=== PATIENT | male | born 1960 | race African-American/Black ===

== ENCOUNTER 2016-11-22 00:36 | Emergency (ER) | payer MEDICAID ==
[~2016-11-22] VITALS: Ht 177.8 cm; Wt 117.9 kg
[~2016-11-22 00:36] MED LIST: AMOX-263 PO; METR500T PO
[2016-11-22 01:34] LABS: Basophils # (auto) 0 uL; Basophils % (auto) 0.4 % (0.0-2.0); Eosinophils # (auto) 0.3 uL; Hematocrit 39.6 % (41.0-53.0); Hemoglobin 12.3 g/dL (13.5-17.5); Lymphocytes # (auto) 0.9 uL; Lymphocytes % (auto) 18.6 % (10.0-50.0); Mean Corpuscular Hemoglobin 28.6 pg (28.0-32.0); Mean Corpuscular Hgb Conc. 30.9 g/dL (32.0-36.0); Mean Corpuscular Volume 92.4 fL (80.0-100.0); Mean Platelet Volume 9.7 fL (7.4-10.4); Monocytes # (auto) 0.5 uL; Monocytes % (auto) 10.3 % (0.0-12.0); Neutrophils # (auto) 3.3 uL; Neutrophils % (auto) 65.7 % (37.0-80.0); Platelet Count (auto) 171 10^3/uL (140-450); Red Cell Distribution Width 16.6 % (11.6-16.0)
[2016-11-22 01:40] LABS: Partial Thromboplastin Time 29.9 sec (22.64-33.71); Prothrombin Time 12.2 sec (9.37-12.3)
[2016-11-22 01:41] LABS: INR 1.18 (0.9-1.15)
[2016-11-22 01:45] LABS: Albumin 3.3 g/dL (3.4-5.0); Calcium 7.6 mg/dL (8.5-10.1); Magnesium 2.9 mg/dL (1.6-2.6); Potassium 4.7 mmol/L (3.5-5.1)
[2016-11-22 01:53] LABS: Bilirubin, Total 0.5 mg/dL (0.2-1.0); Total Protein 7.2 g/dL (6.4-8.2)
[2016-11-22 02:06] LABS: B-Type Natriuretic Peptide 375.9 pg/mL (0-100); Temperature: 21.2 C (20.0-25.0)
[2016-11-22] MEDS ORDERED: ONDANSETRON HCL 4 MG/2 ML VIAL IV ONE (03:45)
[2016-11-22] MEDS ORDERED: HYDROmorphone HCL 2 MG/ML VL IV ONE ×2 (03:45→05:00)
[2016-11-22 04:40] VITALS: BP 153/87
[2016-11-22] MEDS ORDERED: cloNIDine HCL 0.1 MG TAB PO ONE (05:00)
== END 2016-11-22 05:15 | disposition short-term general hospital (02) ==
LOC: EDBD 00:36 → ER 00:39
DX: I71.01 Dissection of thoracic aorta (principal); N18.6 End stage renal disease; I12.0 Hypertensive chronic kidney disease with stage 5 chronic kidney disease or end stage renal disease; Z99.2 Dependence on renal dialysis; R07.9 Chest pain, unspecified; R06.02 Shortness of breath; R10.12 Left upper quadrant pain; R10.32 Left lower quadrant pain; R11.10 Vomiting, unspecified; F17.210 Nicotine dependence, cigarettes, uncomplicated; Z86.79 Personal history of other diseases of the circulatory system; I71.4 Abdominal aortic aneurysm, without rupture; Z88.1 Allergy status to other antibiotic agents; Z88.6 Allergy status to analgesic agent
CPT/HCPCS: 36415; 71250; 74176; 80053; 83735; 83880; 84484; 85025; 85610; 85730; 93005; 96374; 96375; 99285; J1170; J2405

== ENCOUNTER 2017-02-07 07:49 | Emergency (ER) | payer MEDICAID ==
[~2017-02-07] VITALS: Ht 180.3 cm; Wt 127.0 kg
[2017-02-07 07:59] VITALS: BP 183/110
== END 2017-02-07 08:23 | disposition home or self-care (01) ==
LOC: ER 07:55
DX: H10.31 Unspecified acute conjunctivitis, right eye (principal); F17.210 Nicotine dependence, cigarettes, uncomplicated; I12.0 Hypertensive chronic kidney disease with stage 5 chronic kidney disease or end stage renal disease; N18.6 End stage renal disease

== ENCOUNTER 2017-08-18 02:29 | Emergency (ER) | payer MEDICAID ==
[~2017-08-18] VITALS: Ht 180.3 cm; Wt 127.0 kg
[2017-08-18] MEDS ORDERED: cloNIDine HCL 0.1 MG TAB ONE ×2 (02:46→05:04)
[2017-08-18] MEDS ORDERED: cloNIDine HCL 0.1 MG TAB PO ONE ×2 (03:00→05:45)
[2017-08-18] MEDS ORDERED: ONDANSETRON HCL 4 MG/2 ML VIAL IV ONE (05:15)
[2017-08-18] MEDS ORDERED: HYDROmorphone HCL 2 MG/ML VL IV ONE (05:15)
[2017-08-18 05:42] LABS: Basophils # (auto) 0.1 uL; Eosinophils # (auto) 0.5 uL; Eosinophils % (auto) 7.5 % (0.0-7.0); Hematocrit 39.4 % (41.0-53.0); Hemoglobin 12.8 g/dL (13.5-17.5); Lymphocytes # (auto) 1.3 uL; Lymphocytes % (auto) 19.8 % (10.0-50.0); Mean Corpuscular Hemoglobin 30.2 pg (28.0-32.0); Mean Corpuscular Hgb Conc. 32.4 g/dL (32.0-36.0); Mean Corpuscular Volume 93.4 fL (80.0-100.0); Mean Platelet Volume 9.5 fL (6.9-10.8); Monocytes # (auto) 0.6 uL; Monocytes % (auto) 9.6 % (0.0-12.0); Neutrophils # (auto) 4.1 uL; Neutrophils % (auto) 62.1 % (37.0-80.0); Nucleated Red Blood Cells % 0.2 %; Platelet Count (auto) 252 10^3/uL (140-450); Red Cell Distribution Width 17.6 % (11.8-14.3); White Blood Cell 6.6 10^3/uL (4.4-10.8)
[2017-08-18 05:56] LABS: INR 1.14 (0.9-1.15); Partial Thromboplastin Time 34.1 sec (22.64-33.71); Prothrombin Time 12.4 sec (9.37-12.3)
[2017-08-18 06:12] LABS: B-Type Natriuretic Peptide 185.58 pg/mL (0-100)
[2017-08-18 06:13] LABS: Temperature: 21.9 C (20.0-25.0)
[2017-08-18 06:16] LABS: Albumin 3.8 g/dL (3.4-5.0); BUN/Creatinine Ratio 4.7; Bilirubin, Total 0.9 mg/dL (0.2-1.0); Calcium 7.4 mg/dL (8.5-10.1); Total Protein 8.3 g/dL (6.4-8.2)
[2017-08-18 06:31] LABS: Potassium 6.1 mmol/L (3.5-5.1)
[2017-08-18] MEDS ORDERED: CALCIUM CHL 100MG/ML 1,000 MG in D5W 5% 100 ML IV ONE (07:00)
[2017-08-18] MEDS ORDERED: SODIUM BICARBONATE 8.4 % INJ 50ML VIAL IV ONE (07:00)
[2017-08-18] MEDS ORDERED: ALBUTEROL SULF 2.5 MG/0.5ML(0.5%) NEB SOLN NEB ONE (07:00)
[2017-08-18] MEDS ORDERED: PROMETHAZINE HCL 25 MG/ML 1ML IV ONE ×2 (07:45→14:30)
[2017-08-18] MEDS ORDERED: MORPHINE SULF INJ 2 MG/ML SYRINGE 1ML IV ONE ×2 (07:45→14:30)
[2017-08-18] MEDS ORDERED: SODIUM CHL 0.9% 1000 ML BAG XX ONE (10:45)
[2017-08-18] MEDS ORDERED: EPOETIN ALFA 3,000 UNIT/1 ML VIAL IV ONE (10:45)
[2017-08-18 15:58] VITALS: BP 127/71
[2017-08-18 16:00] VITALS: BP 115/71
[2017-08-18 17:13] LABS: BUN/Creatinine Ratio 4.2; Calcium 7.5 mg/dL (8.5-10.1); Potassium 4.9 mmol/L (3.5-5.1)
== END 2017-08-18 17:46 | disposition home or self-care (01) ==
LOC: ER 02:31
DX: S50.01XA Contusion of right elbow, initial encounter (principal); E87.5 Hyperkalemia; N18.6 End stage renal disease; I12.0 Hypertensive chronic kidney disease with stage 5 chronic kidney disease or end stage renal disease; I71.4 Abdominal aortic aneurysm, without rupture; R06.02 Shortness of breath; M61.9 Calcification and ossification of muscle, unspecified; Z99.2 Dependence on renal dialysis; F17.210 Nicotine dependence, cigarettes, uncomplicated; W10.8XXA Fall (on) (from) other stairs and steps, initial encounter; Y93.89 Activity, other specified; Y99.8 Other external cause status; Y92.098 Other place in other non-institutional residence as the place of occurrence of the external cause
CPT/HCPCS: 36415; 71250; 73070; 73090; 73100; 74176; 80048; 80053; 83735; 83880; 84484; 85025; 85610; 85730; 93005; 94640; 96365; 96375; 96376; 99285; J1170; J1642; J2270; J2405; J2550; J7030; 90935; J7060

== ENCOUNTER 2018-08-29 01:59 | Inpatient (IN) | payer MEDICAID ==
[~2018-08-29] VITALS: Ht 180.3 cm; Wt 141.9 kg
[~2018-08-29 01:59] MED LIST changes: -AMOX-263 PO; -METR500T PO; +PANT40T PO
[2018-08-29] MEDS ORDERED: FUROSEMIDE 40 MG/4 ML VIAL IV ONE (03:15)
[2018-08-29] MEDS ORDERED: PANTOPRAZOLE 40 MG/10 ML VIAL IV ONE (03:30)
[2018-08-29] MEDS ORDERED: ONDANSETRON HCL 4 MG/2 ML VIAL IV ONE (03:30)
[2018-08-29] MEDS ORDERED: MORPHINE SULFATE 4 MG/ML SYR/VIAL IV ONE ×2 (03:30→04:45)
[2018-08-29] MEDS ORDERED: PANTOPRAZOLE 80 MG in SODIUM CHL 0.9% 60 ML IV ONE (03:30)
[2018-08-29] MEDS ORDERED: LABETALOL HCL 5 MG/ML ML 20ML VIAL IV ONE (04:00)
[2018-08-29 04:05] LABS: Basophils # (auto) 0 uL; Basophils % (auto) 0.2 % (0.0-2.0); Eosinophils # (auto) 0.2 uL; Eosinophils % (auto) 2.9 % (0.0-7.0); Hematocrit 42.8 % (41.0-53.0); Hemoglobin 13.8 g/dL (13.5-17.5); Lymphocytes # (auto) 0.8 uL; Lymphocytes % (auto) 14.1 % (10.0-50.0); Mean Corpuscular Hemoglobin 28.8 pg (28.0-32.0); Mean Corpuscular Hgb Conc. 32.3 g/dL (32.0-36.0); Mean Corpuscular Volume 89.1 fL (80.0-100.0); Monocytes # (auto) 0.5 uL; Monocytes % (auto) 8.7 % (0.0-12.0); Neutrophils # (auto) 3.9 uL; Neutrophils % (auto) 74.1 % (37.0-80.0); Platelet Count (auto) 173 10^3/uL (140-450); White Blood Cell 5.3 10^3/uL (4.4-10.8)
[2018-08-29 04:07] LABS: Red Cell Distribution Width 21.6 % (11.8-14.3)
[2018-08-29 04:17] LABS: INR 1.21 (0.9-1.15); Partial Thromboplastin Time 31.9 sec (23.78-33.04); Prothrombin Time 12.8 sec (9.27-12.13)
[2018-08-29 04:30] LABS: Albumin 3.5 g/dL (3.4-5.0); BUN/Creatinine Ratio 6.6; Magnesium 2.9 mg/dL (1.6-2.6)
[2018-08-29 04:34] LABS: Bilirubin, Total 0.7 mg/dL (0.2-1.0); Total Protein 7.7 g/dL (6.4-8.2)
[2018-08-29 04:40] LABS: Potassium 7.1 mmol/L (3.5-5.1)
[2018-08-29 04:41] LABS: Calcium 5.8 mg/dL (8.5-10.1)
[2018-08-29] MEDS ORDERED: CALCIUM GLUC 4.65meq/50ml D5AE 50 ML IV ONE (05:00)
[2018-08-29] MEDS ORDERED: InsuLIN REG 1unit/0.01ml Soln (100units/ml) IV ONE (05:00)
[2018-08-29] MEDS ORDERED: SODIUM POLYSTYRENE SULF 15 GM POWDER PO ONE (05:00)
[2018-08-29] MEDS ORDERED: DEXTROSE (50%) 50ML SYRG IV ONE (05:00)
[2018-08-29] MEDS ORDERED: LORazepam 2MG/ML-1ML VIAL IV PRN (06:00)
[2018-08-29] MEDS ORDERED: hydrALAZINE HCL 20 MG/ML VL IV ONE (06:00)
[2018-08-29] MEDS ORDERED: hydrALAZINE HCL 20 MG/ML VL IV PRN ×2 (06:00→14:30)
[2018-08-29] MEDS ORDERED: ONDANSETRON HCL 4 MG/2 ML VIAL IV PRN (06:00)
[2018-08-29] MEDS ORDERED: cefTRIAXone 1GM/10ml IVPUSH 10 ML IV SCH (07:00)
[2018-08-29] MEDS ORDERED: AZITHROMYCIN 500MG/ 250ML 250 ML IV SCH ×2 (08:00→13:00)
[2018-08-29] MEDS ORDERED: EPOETIN ALFA 10,000 UNIT/1 ML VIAL IV ONE (08:15)
[2018-08-29] MEDS ORDERED: SODIUM CHL 0.9% 1000 ML BAG XX ONE (08:15)
[2018-08-29] MEDS: MORPHINE SULFATE 4 MG/ML SYR/VIAL IV PRN ×3 (09:19→22:34)
[2018-08-29] MEDS ORDERED: metroNIDAZOLE 500MG/100ML 100 ML IV SCH (11:00)
[2018-08-29 13:14] VITALS: BP 165/85
[2018-08-29 13:57] VITALS: BP 165/85
[2018-08-29] MEDS ORDERED: LABETALOL HCL 5 MG/ML ML 20ML VIAL IV PRN (14:15)
[2018-08-29 15:13] LABS: Basophils # (auto) 0 uL; Basophils % (auto) 0.5 % (0.0-2.0); Eosinophils # (auto) 0.1 uL; Eosinophils % (auto) 1.6 % (0.0-7.0); Hematocrit 40.3 % (41.0-53.0); Hemoglobin 13.2 g/dL (13.5-17.5); Lymphocytes # (auto) 0.9 uL; Lymphocytes % (auto) 18.5 % (10.0-50.0); Mean Corpuscular Hemoglobin 29.5 pg (28.0-32.0); Mean Corpuscular Hgb Conc. 32.7 g/dL (32.0-36.0); Mean Corpuscular Volume 90.4 fL (80.0-100.0); Monocytes # (auto) 0.6 uL; Monocytes % (auto) 13.1 % (0.0-12.0); Neutrophils # (auto) 3.1 uL; Neutrophils % (auto) 66.3 % (37.0-80.0); Nucleated Red Blood Cells % 0.1 %; Platelet Count (auto) 169 10^3/uL (140-450); Red Blood Cells 4.46 10^6/uL (4.5-5.90); White Blood Cell 4.7 10^3/uL (4.4-10.8)
[2018-08-29 15:17] LABS: Red Cell Distribution Width 21.5 % (11.8-14.3)
[2018-08-29 15:33] LABS: Albumin 3.5 g/dL (3.4-5.0); Calcium 6.7 mg/dL (8.5-10.1)
[2018-08-29 15:39] LABS: Bilirubin, Total 0.8 mg/dL (0.2-1.0); Total Protein 7.6 g/dL (6.4-8.2)
[2018-08-29 15:46] LABS: BUN/Creatinine Ratio 7.6
[2018-08-29] MEDS: metroNIDAZOLE 500MG/100ML 100 ML IV SCH ×2 (15:49→22:33)
[2018-08-29 16:34] VITALS: BP 126/87
[2018-08-29] MEDS: PANTOPRAZOLE 80 MG in SODIUM CHL 0.9% 60 ML IV SCH (17:06)
[2018-08-29 18:47] LABS: Hematocrit 40.5 % (41.0-53.0); Hemoglobin 13.1 g/dL (13.5-17.5)
[2018-08-29 22:00] VITALS: BP 165/93
[2018-08-30 00:15] VITALS: BP 106/59
[2018-08-30] MEDS: MORPHINE SULFATE 4 MG/ML SYR/VIAL IV PRN ×4 (00:45→16:44)
[2018-08-30] MEDS: PANTOPRAZOLE 80 MG in SODIUM CHL 0.9% 60 ML IV SCH (00:45)
[2018-08-30 00:47] LABS: Hematocrit 40.7 % (41.0-53.0)
[2018-08-30 05:30] VITALS: BP 115/89
[2018-08-30] MEDS: metroNIDAZOLE 500MG/100ML 100 ML IV SCH ×3 (06:53→22:26)
[2018-08-30] MEDS: cefTRIAXone 1GM/50ML D5W 50 ML IV SCH (06:53)
[2018-08-30 06:54] LABS: Basophils # (auto) 0 uL; Basophils % (auto) 1.1 % (0.0-2.0); Eosinophils # (auto) 0.2 uL; Eosinophils % (auto) 4.4 % (0.0-7.0); Hematocrit 38.9 % (41.0-53.0); Hemoglobin 12.7 g/dL (13.5-17.5); Lymphocytes # (auto) 0.9 uL; Lymphocytes % (auto) 22.5 % (10.0-50.0); Mean Corpuscular Hemoglobin 29.5 pg (28.0-32.0); Mean Corpuscular Hgb Conc. 32.7 g/dL (32.0-36.0); Mean Corpuscular Volume 90.3 fL (80.0-100.0); Monocytes # (auto) 0.5 uL; Neutrophils # (auto) 2.5 uL; Platelet Count (auto) 159 10^3/uL (140-450); White Blood Cell 4.2 10^3/uL (4.4-10.8)
[2018-08-30 07:00] LABS: BUN/Creatinine Ratio 7.6; Calcium 6.4 mg/dL (8.5-10.1); Magnesium 2.6 mg/dL (1.6-2.6); Potassium 4.9 mmol/L (3.5-5.1)
[2018-08-30 07:15] LABS: Red Cell Distribution Width 21.6 % (11.8-14.3)
[2018-08-30 09:00] VITALS: BP 137/73
[2018-08-30] MEDS ORDERED: FLUMAZENIL 0.1 MG/ML INJ 10ML MDV IV ONE (11:10)
[2018-08-30] MEDS ORDERED: LIDOCAINE VISCOUS 2% 15ML UD ONE (11:10)
[2018-08-30] MEDS ORDERED: SODIUM CHLORIDE LOCK 10 ML ONE (11:10)
[2018-08-30] MEDS ORDERED: NALOXONE HCL 0.4 MG/ML VIAL ONE (11:10)
[2018-08-30] MEDS ORDERED: diphenhdrAMINE HCL 50 MG/1 ML VL ONE (11:11)
[2018-08-30] MEDS ORDERED: MIDAZOLAM HCL 5 MG/ML-1ML VIAL ONE (11:11)
[2018-08-30] MEDS ORDERED: fentaNYL CITRATE 100 MCG/2 ML VL ONE (11:11)
[2018-08-30 16:00] VITALS: BP 150/83
[2018-08-30 22:00] VITALS: BP 142/74
[2018-08-30] MEDS: PANTOPRAZOLE 40 MG TAB PO SCH (22:26)
[2018-08-31] MEDS: MORPHINE SULFATE 4 MG/ML SYR/VIAL IV PRN ×2 (04:11→08:19)
[2018-08-31] MEDS: cefTRIAXone 1GM/50ML D5W 50 ML IV SCH (05:39)
[2018-08-31 05:41] LABS: BUN/Creatinine Ratio 7.7; Calcium 6.4 mg/dL (8.5-10.1); Hematocrit 37.5 % (41.0-53.0); Hemoglobin 12.2 g/dL (13.5-17.5); Potassium 5.5 mmol/L (3.5-5.1)
[2018-08-31 05:47] VITALS: BP 127/86
[2018-08-31] MEDS: metroNIDAZOLE 500MG/100ML 100 ML IV SCH ×2 (06:21→15:00)
[2018-08-31] MEDS ORDERED: SODIUM CHL 0.9% 1000 ML BAG XX ONE (07:00)
[2018-08-31 09:00] VITALS: BP 147/64
[2018-08-31] MEDS ORDERED: EPOETIN ALFA 10,000 UNIT/1 ML VIAL IV ONE (09:00)
[2018-08-31] MEDS: PANTOPRAZOLE 40 MG TAB PO SCH (10:00)
[2018-08-31] MEDS ORDERED: METOPROLOL TARTRATE 25 MG TAB PO SCH (10:00)
[2018-08-31] MEDS ORDERED: diphenhdrAMINE HCL 25 MG CAP PO ONE (10:15)
[2018-08-31] MEDS ORDERED: METR500T PO (11:51)
[2018-08-31] MEDS ORDERED: PANT40TA2 PO (11:51)
[2018-08-31] MEDS ORDERED: LEVO250T19 PO (11:51)
[2018-08-31 13:00] VITALS: BP 117/72
== END 2018-08-31 22:37 | disposition home health service (06) | DRG 241 ==
LOC: EDBD 01:59 → ER 01:59 → TELE 02:00 → TELE-EAST 12:52
PROVIDERS: ADMIT Nurse Practitioner Family; ATTEND Internal Medicine
PROC: 0DB68ZX Excision of Stomach, Via Natural or Artificial Opening Endoscopic, Diagnostic (ICD-10-PCS; principal; 2018-08-30 11:44)
DX: K25.4 Chronic or unspecified gastric ulcer with hemorrhage (principal); I13.2 Hypertensive heart and chronic kidney disease with heart failure and with stage 5 chronic kidney disease, or end stage renal disease; K57.33 Diverticulitis of large intestine without perforation or abscess with bleeding; E11.22 Type 2 diabetes mellitus with diabetic chronic kidney disease; E87.2 Acidosis; N18.6 End stage renal disease; E83.51 Hypocalcemia; F17.200 Nicotine dependence, unspecified, uncomplicated; D50.0 Iron deficiency anemia secondary to blood loss (chronic); K29.71 Gastritis, unspecified, with bleeding; I50.9 Heart failure, unspecified; E87.5 Hyperkalemia; I16.0 Hypertensive urgency; E87.6 Hypokalemia; Z99.2 Dependence on renal dialysis; D63.8 Anemia in other chronic diseases classified elsewhere; K29.81 Duodenitis with bleeding; E66.9 Obesity, unspecified; F32.9 Major depressive disorder, single episode, unspecified; F41.0 Panic disorder [episodic paroxysmal anxiety]; I15.8 Other secondary hypertension; I71.4 Abdominal aortic aneurysm, without rupture; N25.81 Secondary hyperparathyroidism of renal origin; Z82.3 Family history of stroke; Z82.49 Family history of ischemic heart disease and other diseases of the circulatory system; Z83.3 Family history of diabetes mellitus; Z87.11 Personal history of peptic ulcer disease
CPT/HCPCS: 36415; 43239; 71045; 74176; 80048; 80053; 82270; 82962; 83735; 84484; 85014; 85018; 85025; 85610; 85730; 86850; 86900; 86901; 87081; 90935; 93005; 96361; 96365; 96375; 97163; C9113; J0610; J0696; J0885; J1642; J1815; J2250; J2405; J3490

== ENCOUNTER 2019-01-04 05:54 | Inpatient (IN) | payer MEDICAID | END 2019-01-07 16:05 | disposition left against medical advice (07) | LOC: ER 05:54 → OVERFLOW 15:50 → CENTRAL 22:12 | DX: S82.891A Other fracture of right lower leg, initial encounter for closed fracture (principal); I13.2 Hypertensive heart and chronic kidney disease with heart failure and with stage 5 chronic kidney disease, or end stage renal disease; N18.6 End stage renal disease; E83.39 Other disorders of phosphorus metabolism; L03.115 Cellulitis of right lower limb; N25.81 Secondary hyperparathyroidism of renal origin; K27.9 Peptic ulcer, site unspecified, unspecified as acute or chronic, without hemorrhage or perforation; Z99.2 Dependence on renal dialysis ==

== ENCOUNTER 2020-12-19 05:27 | Inpatient (IN) | payer MEDICAID ==
[~2020-12-19] VITALS: Ht 182.9 cm; Wt 124.0 kg
[~2020-12-19 05:27] MED LIST changes: +ALBUAER3 IN; +ALLO100T PO; -PANT40T PO; +PANT40TA2 PO; +SEVE800T PO; +TAMIF30 PO
[2020-12-19] MEDS ORDERED: DEXTROSE (50%) 50ML SYRG IV ONE ×2 (05:45→08:45)
[2020-12-19] MEDS ORDERED: DEXTROSE 50% SYRINGE 50 ML IV ONE (05:48)
[2020-12-19] MEDS ORDERED: ONDANSETRON HCL 4 MG/2 ML VIAL IV ONE (06:30)
[2020-12-19] MEDS ORDERED: MORPHINE SULFATE 4 MG/ML SYR/VIAL IV ONE (06:30)
[2020-12-19] MEDS: NOREPINEPHRINE 8 MG/250ML KIT 250 ML IV SCH ×2 (07:39→08:28)
[2020-12-19] MEDS: DEXTROSE (50%) 50ML SYRG IV PRN (07:39)
[2020-12-19] MEDS: DEXTROSE 10% 1,000 ML IV SCH ×2 (07:39→16:25)
[2020-12-19] MEDS ORDERED: PIPERACILLIN-TAZOB 3.375GM 100 ML IV ONE (07:45)
[2020-12-19 08:02] LABS: Basophils # (auto) 0 10 ^3/uL (0-0.2); Basophils % (auto) 0.1 % (0.0-2.0); Eosinophils # (auto) 0 10 ^3/uL (0-0.8); Hematocrit 41.8 % (41.0-53.0); Monocytes # (auto) 1.1 10 ^3/uL (0-1.3); Neutrophils # (auto) 11.4 10 ^3/uL (1.6-8.6); Neutrophils % (auto) 90.2 % (37.0-80.0)
[2020-12-19 08:04] LABS: Hemoglobin 12.9 g/dL (13.5-17.5); Lymphocytes # (auto) 0.1 10 ^3/uL (0.4-5.4); Lymphocytes % (auto) 1.1 % (10.0-50.0); Mean Corpuscular Hgb Conc. 30.8 g/dL (32.0-36.0); Mean Corpuscular Volume 87.9 fL (80.0-100.0); Monocytes % (auto) 8.6 % (0.0-12.0); Platelet Count (auto) 207 10^3/uL (140-450); Red Blood Cells 4.76 10^6/uL (4.5-5.90); Red Cell Distribution Width 19.7 % (11.8-14.3); White Blood Cell 12.6 10^3/uL (4.4-10.8)
[2020-12-19 08:30] LABS: Alanine Aminotransferase 11 U/L (16-61); Albumin 3.1 g/dL (3.4-5.0); Alkaline Phosphatase 181 U/L (45-117); Aspartate Aminotransferase 12 U/L (15-37); BUN/Creatinine Ratio 6.6; Bilirubin, Total 1.6 mg/dL (0.2-1.0); Blood Alcohol < 3.0 mg/dL (0-5); Calcium 6.4 mg/dL (8.5-10.1); Carbon Dioxide 14 mmol/L (21-32); GFR African American 6 mL/min; GFR Non-African American 5 mL/min; Glucose 202 mg/dL (74-106); Lactate Dehydrogenase 308 U/L (87-241); Total Protein 7.6 g/dL (6.4-8.2)
[2020-12-19 08:33] LABS: Anion Gap 17 (5-15); Chloride 99 mmol/L (98-107); Sodium 130 mmol/L (136-145)
[2020-12-19 08:35] LABS: Blood Urea Nitrogen 80 mg/dL (7-18); Potassium 5.7 mmol/L (3.5-5.1)
[2020-12-19 08:36] LABS: INR 1.66 (0.9-1.15); Partial Thromboplastin Time 39.2 sec (23.0-31.2)
[2020-12-19] MEDS ORDERED: InsuLIN REG 1unit/0.01ml Soln (100units/ml) IV ONE (08:45)
[2020-12-19] MEDS ORDERED: ALBUTEROL SULF 2.5 MG/0.5ML(0.5%) NEB SOLN NEB ONE (08:45)
[2020-12-19] MEDS ORDERED: CALCIUM GLUC 4.65meq/50ml D5AE 50 ML IV ONE (08:45)
[2020-12-19] MEDS ORDERED: SODIUM BICARBONATE 8.4% INJ 50ML SYRINGE IV ONE (08:45)
[2020-12-19] MEDS ORDERED: SODIUM ZIRCONIUM CYCL 10 GM PAK PO ONE (08:45)
[2020-12-19] MEDS ORDERED: FUROSEMIDE 20 MG/2 ML VIAL IV ONE (08:45)
[2020-12-19] MEDS ORDERED: HYDROcodone-ACET 7.5/325MG TAB PO ONE (09:30)
[2020-12-19] MEDS ORDERED: SODIUM CHL 0.9% 1000 ML BAG XX ONE (09:30)
[2020-12-19] MEDS ORDERED: DIGOXIN 0.25 MG TAB PO ONE (09:45)
[2020-12-19] MEDS ORDERED: DIGOXIN (250MCG/ML) 2 ML AMPULE IV ONE (09:45)
[2020-12-19] MEDS ORDERED: IOHEXOL 350 MG/ML 100ML IJ ONE (10:16)
[2020-12-19 10:20] LABS: % Iron Saturation 8.4 % (20-55)
[2020-12-19] MEDS ORDERED: diphenhdrAMINE HCL 50 MG/1 ML VL ONE (11:06)
[2020-12-19] MEDS ORDERED: diphenhdrAMINE HCL 50 MG/1 ML VL IV ONE (11:15)
[2020-12-19] MEDS ORDERED: MORPHINE SULF INJ 2 MG/ML SYRINGE 1ML IV PRN (11:30)
[2020-12-19] MEDS ORDERED: VANCOMYCIN PER PHARMACY 0 MG IV SCH (11:30)
[2020-12-19] MEDS ORDERED: PHENYLEPHRINE IV 250 ML IV SCH (11:30)
[2020-12-19] MEDS ORDERED: SODIUM CHLORIDE 0.9% 1,000 ML IV ONE (11:30)
[2020-12-19] MEDS ORDERED: NITROGLYCERIN 0.4 MG SL TAB SL PRN (11:30)
[2020-12-19] MEDS ORDERED: VANCOMYCIN 1GM/250ML 250 ML IV ONE (12:00)
[2020-12-19] MEDS ORDERED: SEVELAMER 800 MG TAB PO SCH (12:00)
[2020-12-19] MEDS: ACCU-CHEK COMFORT CURVE STRIP VI SCH ×3 (12:21→20:28)
[2020-12-19] MEDS ORDERED: NOREPINEPHRINE 8 MG/250ML KIT 250 ML IV ONE (13:00)
[2020-12-19] MEDS ORDERED: AMIODARONE HCL 150 MG in D5W 5% 100 ML IV ONE (13:45)
[2020-12-19] MEDS ORDERED: AMIODARONE 450mg/250ml AE 250 ML IV SCH ×2 (14:00→20:00)
[2020-12-19] MEDS ORDERED: NOREPINEPHRINE 8 MG/250ML KIT 250 ML IV SCH (14:30)
[2020-12-19] MEDS: SEVELAMER 800 MG TAB PO SCH (18:23)
[2020-12-19 19:30] LABS: Basophils # (auto) 0 10 ^3/uL (0-0.2); Basophils % (auto) 0.1 % (0.0-2.0); Lymphocytes # (auto) 0.4 10 ^3/uL (0.4-5.4); Red Blood Cells 4.74 10^6/uL (4.5-5.90)
[2020-12-19 19:32] LABS: Eosinophils # (auto) 0.1 10 ^3/uL (0-0.8); Eosinophils % (auto) 0.4 % (0.0-7.0); Mean Corpuscular Hemoglobin 27.4 pg (28.0-32.0); Mean Corpuscular Hgb Conc. 31.7 g/dL (32.0-36.0); Mean Corpuscular Volume 86.4 fL (80.0-100.0); Monocytes # (auto) 1.4 10 ^3/uL (0-1.3); Monocytes % (auto) 10.8 % (0.0-12.0); Neutrophils # (auto) 11.4 10 ^3/uL (1.6-8.6); Neutrophils % (auto) 85.7 % (37.0-80.0); Nucleated Red Blood Cells % 0.1 %; Platelet Count (auto) 278 10^3/uL (140-450); Red Cell Distribution Width 19.7 % (11.8-14.3); White Blood Cell 13.3 10^3/uL (4.4-10.8)
[2020-12-19 19:42] LABS: Potassium 4.9 mmol/L (3.5-5.1)
[2020-12-19 19:49] LABS: BUN/Creatinine Ratio 5.5; Bilirubin, Total 1.3 mg/dL (0.2-1.0); Total Protein 7.5 g/dL (6.4-8.2)
[2020-12-19] MEDS ORDERED: EPOETIN ALFA 10,000 UNIT/1 ML VIAL SC ONE (21:00)
[2020-12-19] MEDS: PANTOPRAZOLE 40 MG TAB PO SCH (21:40)
[2020-12-19] MEDS: HYDROcodone-ACET 5/325MG TAB PO PRN (21:41)
[2020-12-19] MEDS: PIPERACILLIN-TAZOB 2.25GM 50 ML IV SCH (21:45)
[2020-12-20] MEDS: DEXTROSE 10% 1,000 ML IV SCH ×2 (02:00→12:10)
[2020-12-20] MEDS: HYDROcodone-ACET 5/325MG TAB PO PRN (02:02)
[2020-12-20] MEDS: ACCU-CHEK COMFORT CURVE STRIP VI SCH ×5 (04:00→16:10)
[2020-12-20] MEDS ORDERED: DIGOXIN 0.25 MG TAB PO ONE ×2 (06:00)
[2020-12-20] MEDS: SEVELAMER 800 MG TAB PO SCH ×3 (08:00→18:00)
[2020-12-20] MEDS ORDERED: DEXTROSE 50% SYRINGE 50 ML IV ONE (08:23)
[2020-12-20] MEDS: DEXTROSE (50%) 50ML SYRG IV PRN (08:33)
[2020-12-20 08:43] LABS: Basophils # (auto) 0 10 ^3/uL (0-0.2); Basophils % (auto) 0.3 % (0.0-2.0); Eosinophils # (auto) 0.1 10 ^3/uL (0-0.8); Eosinophils % (auto) 1.1 % (0.0-7.0); Hematocrit 37.2 % (41.0-53.0); Hemoglobin 11.7 g/dL (13.5-17.5); Lymphocytes # (auto) 0.5 10 ^3/uL (0.4-5.4); Lymphocytes % (auto) 5.2 % (10.0-50.0); Mean Corpuscular Hemoglobin 27.5 pg (28.0-32.0); Mean Corpuscular Hgb Conc. 31.4 g/dL (32.0-36.0); Mean Corpuscular Volume 87.6 fL (80.0-100.0); Monocytes % (auto) 11.4 % (0.0-12.0); Neutrophils # (auto) 7.3 10 ^3/uL (1.6-8.6); Nucleated Red Blood Cells % 0.1 %; Platelet Count (auto) 225 10^3/uL (140-450); Red Blood Cells 4.25 10^6/uL (4.5-5.90); White Blood Cell 8.9 10^3/uL (4.4-10.8)
[2020-12-20] MEDS: PHENYLEPHRINE IV 250 ML IV SCH ×5 (08:45→20:39)
[2020-12-20 09:00] LABS: Albumin 2.6 g/dL (3.4-5.0)
[2020-12-20 09:03] LABS: BUN/Creatinine Ratio 5.5; Bilirubin, Total 0.9 mg/dL (0.2-1.0); Phosphorus 6.8 mg/dL (2.5-4.90); Total Protein 6.7 g/dL (6.4-8.2)
[2020-12-20 09:20] LABS: Calcium 5.2 mg/dL (8.5-10.1)
[2020-12-20] MEDS: PIPERACILLIN-TAZOB 2.25GM 50 ML IV SCH ×2 (10:00→22:29)
[2020-12-20] MEDS: ALLOPURINOL 100 MG TAB PO SCH (10:30)
[2020-12-20] MEDS: AMIODARONE HCL 200 MG TAB PO SCH ×3 (10:30→22:00)
[2020-12-20] MEDS: PANTOPRAZOLE 40 MG TAB PO SCH ×2 (10:30→22:00)
[2020-12-20] MEDS ORDERED: DEXTROSE 50% SYRINGE 100 ML IV ONE (16:53)
[2020-12-20 17:28] LABS: Albumin 2.6 g/dL (3.4-5.0); Anion Gap 10 (5-15); Blood Urea Nitrogen 47 mg/dL (7-18); Carbon Dioxide 23 mmol/L (21-32); Chloride 93 mmol/L (98-107); Glucose 321 mg/dL (74-106); Sodium 126 mmol/L (136-145)
[2020-12-20 17:31] LABS: Alanine Aminotransferase 9 U/L (16-61); Alkaline Phosphatase 197 U/L (45-117); Aspartate Aminotransferase 9 U/L (15-37); BUN/Creatinine Ratio 5.1; Bilirubin, Total 0.7 mg/dL (0.2-1.0); GFR African American 8 mL/min; GFR Non-African American 6 mL/min; Total Protein 6.7 g/dL (6.4-8.2)
[2020-12-20 17:43] LABS: Calcium < 5.0 mg/dL (8.5-10.1)
[2020-12-20] MEDS ORDERED: SODIUM FERR GLUC 62.5MG/5ML 125 MG in SODIUM CHL 0.9% 100 ML IV ONE (17:45)
[2020-12-20] MEDS ORDERED: DOCUSATE SOD 100 MG CAP PO PRN (17:45)
[2020-12-20] MEDS: SODIUM CHLORIDE 0.9% 1,000 ML IV SCH (17:45)
[2020-12-20] MEDS: FERROUS SULFATE 325 MG TAB PO SCH (18:00)
[2020-12-20] MEDS ORDERED: VANCOMYCIN 1GM/250ML 250 ML IV ONE (18:00)
[2020-12-20] MEDS ORDERED: NOREPINEPHRINE 8 MG/250ML KIT 250 ML IV ONE (19:00)
[2020-12-20] MEDS ORDERED: DEXTROSE (50%) 50ML SYRG IV PRN (19:45)
[2020-12-20 20:00] VITALS: BP 80/50
[2020-12-20] MEDS ORDERED: VASOPRESSIN 20 UNIT/ML ONE (20:29)
[2020-12-20] MEDS: VASOPRESSIN 50 UNITS in D5W 5% 247.5 ML IV SCH (20:30)
[2020-12-20] MEDS ORDERED: NOREPINEPHRINE 8 MG/250ML KIT 250 ML IV SCH (20:45)
[2020-12-20 21:00] VITALS: BP 164/34
[2020-12-20 22:00] VITALS: BP 182/148
[2020-12-20] MEDS ORDERED: InsuLIN REG 1unit/0.01ml Soln (100units/ml) SC SCH (22:00)
[2020-12-20 22:01] LABS: Albumin 2.9 g/dL (3.4-5.0); Potassium 5.3 mmol/L (3.5-5.1)
[2020-12-20 22:05] LABS: BUN/Creatinine Ratio 5.4; Bilirubin, Total 0.8 mg/dL (0.2-1.0); Total Protein 7.6 g/dL (6.4-8.2)
[2020-12-20 22:07] LABS: Calcium 5.1 mg/dL (8.5-10.1)
[2020-12-20 23:00] VITALS: BP 158/40
[2020-12-21] VITALS (75 sets, daily range): BP systolic 84–218; BP diastolic 28–133
[2020-12-21] MEDS ORDERED: PHENYLEPHRINE IV 250 ML IV SCH (03:00)
[2020-12-21] MEDS ORDERED: PHENYLEPHRINE HCL 10 MG/ML VL ONE (03:00)
[2020-12-21] MEDS: SODIUM CHLORIDE 0.9% 1,000 ML IV SCH ×3 (03:57→22:51)
[2020-12-21 03:59] LABS: Basophils # (auto) 0 10 ^3/uL (0-0.2); Eosinophils # (auto) 0.1 10 ^3/uL (0-0.8); Hemoglobin 12.9 g/dL (13.5-17.5); Mean Corpuscular Volume 88.3 fL (80.0-100.0); Neutrophils # (auto) 6.6 10 ^3/uL (1.6-8.6); Nucleated Red Blood Cells % 0.3 %; White Blood Cell 8.6 10^3/uL (4.4-10.8)
[2020-12-21 04:01] LABS: Basophils % (auto) 0.4 % (0.0-2.0); Eosinophils % (auto) 0.6 % (0.0-7.0); Hematocrit 41.5 % (41.0-53.0); Lymphocytes # (auto) 0.5 10 ^3/uL (0.4-5.4); Lymphocytes % (auto) 6.3 % (10.0-50.0); Mean Corpuscular Hemoglobin 27.4 pg (28.0-32.0); Mean Corpuscular Hgb Conc. 31.1 g/dL (32.0-36.0); Monocytes # (auto) 1.4 10 ^3/uL (0-1.3); Monocytes % (auto) 16.3 % (0.0-12.0); Neutrophils % (auto) 76.4 % (37.0-80.0); Platelet Count (auto) 258 10^3/uL (140-450); Red Cell Distribution Width 19.6 % (11.8-14.3)
[2020-12-21 04:47] LABS: BUN/Creatinine Ratio 5.4
[2020-12-21 05:02] LABS: Potassium 5.8 mmol/L (3.5-5.1)
[2020-12-21] MEDS: ACCU-CHEK COMFORT CURVE STRIP VI SCH ×4 (05:31→18:00)
[2020-12-21] MEDS: InsuLIN REG 1unit/0.01ml Soln (100units/ml) SC SCH ×4 (05:31→18:00)
[2020-12-21 05:53] LABS: Calcium 5.1 mg/dL (8.5-10.1)
[2020-12-21] MEDS ORDERED: SODIUM CHL 0.9% 1000 ML BAG XX ONE (07:00)
[2020-12-21] MEDS: PHENYLEPHRINE INJ 40 MG in SODIUM CHL 0.9% 246 ML IV SCH (08:13)
[2020-12-21] MEDS: FERROUS SULFATE 325 MG TAB PO SCH ×3 (09:41→18:12)
[2020-12-21] MEDS: ALLOPURINOL 100 MG TAB PO SCH (09:41)
[2020-12-21] MEDS: SEVELAMER 800 MG TAB PO SCH ×3 (09:41→18:12)
[2020-12-21] MEDS: PANTOPRAZOLE 40 MG TAB PO SCH ×2 (09:42→22:12)
[2020-12-21] MEDS: PIPERACILLIN-TAZOB 2.25GM 50 ML IV SCH ×2 (09:42→22:13)
[2020-12-21] MEDS: AMIODARONE HCL 200 MG TAB PO SCH ×2 (09:42→22:12)
[2020-12-21] MEDS: NOREPINEPHRINE BITARTRATE 16 MG in SODIUM CHL 0.9% 234 ML IV SCH (11:40)
[2020-12-21] MEDS: HYDROcodone-ACET 5/325MG TAB PO PRN ×2 (14:20→20:24)
[2020-12-21] MEDS ORDERED: LORazepam 2MG/ML-1ML VIAL IV PRN (20:00)
[2020-12-21] MEDS ORDERED: NOREPINEPHRINE 8 MG/250ML KIT 250 ML IV ONE (20:28)
[2020-12-21] MEDS ORDERED: NOREPINEPHRINE BITARTRATE 2 ML IV ONE (20:28)
[2020-12-21] MEDS: VASOPRESSIN 50 UNITS in D5W 5% 247.5 ML IV SCH (20:28)
[2020-12-21] MEDS: MORPHINE SULF INJ 2 MG/ML SYRINGE 1ML IV PRN (22:02)
[2020-12-22] VITALS (88 sets, daily range): BP systolic 85–130; BP diastolic 36–77
[2020-12-22] MEDS: ACCU-CHEK COMFORT CURVE STRIP VI SCH ×5 (00:17→23:56)
[2020-12-22] MEDS: PHENYLEPHRINE INJ 40 MG in SODIUM CHL 0.9% 246 ML IV SCH ×2 (00:55→17:35)
[2020-12-22] MEDS: HYDROcodone-ACET 5/325MG TAB PO PRN ×2 (02:36→14:55)
[2020-12-22 04:23] LABS: Basophils # (auto) 0 10 ^3/uL (0-0.2); Basophils % (auto) 0.4 % (0.0-2.0); Eosinophils # (auto) 0.1 10 ^3/uL (0-0.8); Eosinophils % (auto) 1.5 % (0.0-7.0); Hematocrit 36.8 % (41.0-53.0); Hemoglobin 11.4 g/dL (13.5-17.5); Lymphocytes # (auto) 0.4 10 ^3/uL (0.4-5.4); Lymphocytes % (auto) 8.8 % (10.0-50.0); Mean Corpuscular Hemoglobin 27.1 pg (28.0-32.0); Mean Corpuscular Volume 87.5 fL (80.0-100.0); Monocytes # (auto) 0.7 10 ^3/uL (0-1.3); Monocytes % (auto) 15.8 % (0.0-12.0); Neutrophils # (auto) 3.2 10 ^3/uL (1.6-8.6); Neutrophils % (auto) 73.5 % (37.0-80.0); Nucleated Red Blood Cells % 0.3 %; Platelet Count (auto) 168 10^3/uL (140-450); Red Blood Cells 4.21 10^6/uL (4.5-5.90); White Blood Cell 4.4 10^3/uL (4.4-10.8)
[2020-12-22 04:47] LABS: Potassium 5.1 mmol/L (3.5-5.1)
[2020-12-22 04:51] LABS: BUN/Creatinine Ratio 4.8
[2020-12-22] MEDS: NOREPINEPHRINE BITARTRATE 16 MG in SODIUM CHL 0.9% 234 ML IV SCH (04:57)
[2020-12-22] MEDS: InsuLIN REG 1unit/0.01ml Soln (100units/ml) SC SCH ×5 (05:59→23:56)
[2020-12-22 06:43] LABS: Calcium 5.2 mg/dL (8.5-10.1)
[2020-12-22] MEDS ORDERED: VANCOMYCIN 1GM/250ML 250 ML IV ONE (09:00)
[2020-12-22] MEDS: SEVELAMER 800 MG TAB PO SCH ×3 (09:38→18:30)
[2020-12-22] MEDS: FERROUS SULFATE 325 MG TAB PO SCH ×3 (09:38→18:30)
[2020-12-22] MEDS: MORPHINE SULF INJ 2 MG/ML SYRINGE 1ML IV PRN ×3 (10:01→21:21)
[2020-12-22] MEDS: ALLOPURINOL 100 MG TAB PO SCH (11:00)
[2020-12-22] MEDS: AMIODARONE HCL 200 MG TAB PO SCH ×2 (11:00→21:20)
[2020-12-22] MEDS: PANTOPRAZOLE 40 MG TAB PO SCH ×2 (11:00→21:21)
[2020-12-22] MEDS: PIPERACILLIN-TAZOB 2.25GM 50 ML IV SCH ×2 (11:26→21:25)
[2020-12-22] MEDS: VASOPRESSIN 50 UNITS in D5W 5% 247.5 ML IV SCH (20:30)
[2020-12-23] VITALS (57 sets, daily range): BP systolic 99–127; BP diastolic 25–72
[2020-12-23] MEDS: HYDROcodone-ACET 5/325MG TAB PO PRN ×2 (00:05→16:30)
[2020-12-23 05:11] LABS: Basophils # (auto) 0 10 ^3/uL (0-0.2); Eosinophils # (auto) 0.1 10 ^3/uL (0-0.8); Monocytes # (auto) 0.6 10 ^3/uL (0-1.3); Neutrophils # (auto) 2.8 10 ^3/uL (1.6-8.6); Neutrophils % (auto) 72.4 % (37.0-80.0); White Blood Cell 3.8 10^3/uL (4.4-10.8)
[2020-12-23 05:14] LABS: Basophils % (auto) 0.8 % (0.0-2.0); Eosinophils % (auto) 2.2 % (0.0-7.0); Hematocrit 34.8 % (41.0-53.0); Hemoglobin 10.8 g/dL (13.5-17.5); Lymphocytes # (auto) 0.3 10 ^3/uL (0.4-5.4); Lymphocytes % (auto) 8.7 % (10.0-50.0); Mean Corpuscular Hemoglobin 27.5 pg (28.0-32.0); Mean Corpuscular Hgb Conc. 31.1 g/dL (32.0-36.0); Mean Corpuscular Volume 88.5 fL (80.0-100.0); Monocytes % (auto) 15.9 % (0.0-12.0); Nucleated Red Blood Cells % 0.1 %; Platelet Count (auto) 139 10^3/uL (140-450); Red Blood Cells 3.94 10^6/uL (4.5-5.90)
[2020-12-23] MEDS: ACCU-CHEK COMFORT CURVE STRIP VI SCH ×2 (05:39→12:24)
[2020-12-23] MEDS: InsuLIN REG 1unit/0.01ml Soln (100units/ml) SC SCH ×2 (05:40→12:00)
[2020-12-23 05:59] LABS: Anion Gap 9 (5-15); Blood Urea Nitrogen 47 mg/dL (7-18); Carbon Dioxide 25 mmol/L (21-32); Chloride 98 mmol/L (98-107); GFR African American 8 mL/min; GFR Non-African American 6 mL/min; Glucose 83 mg/dL (74-106); Potassium 5.5 mmol/L (3.5-5.1); Sodium 132 mmol/L (136-145)
[2020-12-23 06:15] LABS: Calcium < 5.0 mg/dL (8.5-10.1)
[2020-12-23] MEDS: MORPHINE SULF INJ 2 MG/ML SYRINGE 1ML IV PRN (06:40)
[2020-12-23] MEDS: NOREPINEPHRINE BITARTRATE 16 MG in SODIUM CHL 0.9% 234 ML IV SCH (08:15)
[2020-12-23] MEDS ORDERED: CALCIUM GLUC 4.65meq/50ml D5AE 50 ML IV ONE (08:45)
[2020-12-23] MEDS: FERROUS SULFATE 325 MG TAB PO SCH ×2 (08:52→12:37)
[2020-12-23] MEDS: SEVELAMER 800 MG TAB PO SCH ×2 (08:53→12:37)
[2020-12-23] MEDS: SODIUM ZIRCONIUM CYCL 10 GM PAK PO SCH ×2 (08:53→14:00)
[2020-12-23] MEDS: PIPERACILLIN-TAZOB 2.25GM 50 ML IV SCH (10:00)
[2020-12-23] MEDS: ALLOPURINOL 100 MG TAB PO SCH (12:37)
[2020-12-23] MEDS: AMIODARONE HCL 200 MG TAB PO SCH (12:37)
[2020-12-23] MEDS: PANTOPRAZOLE 40 MG TAB PO SCH (12:37)
[2020-12-23] MEDS ORDERED: VANCOMYCIN 1GM/250ML 250 ML IV ONE (13:00)
[2020-12-23] MEDS ORDERED: InsuLIN REG 1unit/0.01ml Soln (100units/ml) IV ONE (14:15)
[2020-12-23] MEDS ORDERED: DEXTROSE (50%) 50ML SYRG IV ONE (14:15)
== END 2020-12-23 18:15 | disposition home health service (06) | DRG 720 ==
LOC: EDBD 05:27 → ER 05:27 → TELE 05:28 → ICU WEST 12-20 16:50
PROVIDERS: ADMIT Internal Medicine; ATTEND Internal Medicine
PROC: 06HM33Z Insertion of Infusion Device into Right Femoral Vein, Percutaneous Approach (ICD-10-PCS; principal; 2020-12-19)
PROC: 5A1D70Z Performance of Urinary Filtration, Intermittent, Less than 6 Hours Per Day (ICD-10-PCS; 2020-12-19)
PROC: 5A1D70Z Performance of Urinary Filtration, Intermittent, Less than 6 Hours Per Day (ICD-10-PCS; 2020-12-21)
DX: A41.1 Sepsis due to other specified staphylococcus (principal); R65.21 Severe sepsis with septic shock; N18.6 End stage renal disease; J96.01 Acute respiratory failure with hypoxia; E11.42 Type 2 diabetes mellitus with diabetic polyneuropathy; I48.91 Unspecified atrial fibrillation; E87.5 Hyperkalemia; I50.9 Heart failure, unspecified; L89.152 Pressure ulcer of sacral region, stage 2; G92 Toxic encephalopathy; I13.2 Hypertensive heart and chronic kidney disease with heart failure and with stage 5 chronic kidney disease, or end stage renal disease; E87.1 Hypo-osmolality and hyponatremia; E66.9 Obesity, unspecified; Z99.2 Dependence on renal dialysis; E11.649 Type 2 diabetes mellitus with hypoglycemia without coma; E11.22 Type 2 diabetes mellitus with diabetic chronic kidney disease; D50.9 Iron deficiency anemia, unspecified; F17.200 Nicotine dependence, unspecified, uncomplicated; E83.51 Hypocalcemia; F32.9 Major depressive disorder, single episode, unspecified; F41.9 Anxiety disorder, unspecified; K21.9 Gastro-esophageal reflux disease without esophagitis; E83.39 Other disorders of phosphorus metabolism; R53.81 Other malaise; Z20.822 Contact with and (suspected) exposure to COVID-19; Z99.3 Dependence on wheelchair; Z91.19 Patient's noncompliance with other medical treatment and regimen; Z83.3 Family history of diabetes mellitus; Z82.49 Family history of ischemic heart disease and other diseases of the circulatory system; Z66 Do not resuscitate
CPT/HCPCS: 36415; 36556; 36600; 70450; 71045; 78582; 80048; 80053; 80202; 80320; 82140; 82550; 82607; 82805; 82962; 83540; 83550; 83605; 83615; 83735; 83880; 84100; 84132; 84443; 84484; 85025; 85379; 85610; 85730; 86141; 87040; 87077; 87186; 87426; 90935; 93005; 93306; 93970; 94640; 94660; 95819; 99291; G0378; J0610; J0885; J1642; J1815; J2405; J2543; J7060